=== PATIENT | female | born 1960 | race Hispanic/Latino ===

== ENCOUNTER 2022-11-19 15:10 | Emergency (ER) | payer OTHER, SELFPAY ==
--- NOTE | 2022-11-19 15:15 | ED.FEMALEGU ---
HPI - Female Genitourinary General Chief complaint: Abdominal Pain Stated complaint: Abdominal Pain/Nausea/ Vomiting/UTI Time Seen by Provider: 11/19/22 15:40 Source: patient and RN notes reviewed Mode of arrival: ambulatory Limitations: no limitations History of Present Illness HPI Narrative: 62-year-old female presents concern for urinary tract infection symptoms. She reports dysuria, frequency, urgency, left low back pain, nausea without vomiting. 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 She reports the symptoms feel like her typical urinary tract infection symptoms. MD elicited complaint: UTI Related Data Home Medications Medication Instructions Recorded Confirmed hydrochlorothiazide 25 mg tablet 25 mg PO DAILY 11/19/22 11/19/22 levothyroxine 137 mcg tablet 137 mcg PO DAILY 11/19/22 11/19/22 lisinopril 20 mg tablet 20 mg PO DAILY 11/19/22 11/19/22 omeprazole 40 mg capsule,delayed 40 mg PO DAILY 11/19/22 11/19/22 release Allergies Allergy/AdvReac Type Severity Reaction Status Date / Time hydromorphone Allergy Intermediate HALLUCINATIONS/INCREASE Verified 11/19/22 15:20 AGGITATION Review of Systems Review of Systems: CONSTITUTIONAL: Denies malaise, chills, sweats, or fever. CARDIOVASCULAR: Denies chest pain, palpitations, or edema. RESPIRATORY: Denies cough or dyspnea. GASTROINTESTINAL: Reports abdominal pain, nausea, diarrhea. Denies vomiting GENITOURINARY: Reports dysuria, frequency, urgency, suprapubic pressure. Reports left flank pain SKIN: Denies rash or itching. MUSCULOSKELETAL: Reports left back pain. Denies myalgia. All systems reviewed & are unremarkable except as noted in HPI and below PMFSH Comments At time of signature, agree with nursing past medical, surgical, social and family history. There is no relevant family history pertinent to the presenting complaint Exam Narrative: GENERAL: Well-appearing, well-nourished, and in no acute distress. HEAD: Normocephalic. EYES: PERRLA, conjunctivae clear. NECK: Supple. No lymphadenopathy CHEST: Clear to auscultation. No respiratory distress. HEART: Regular rate and rhythm. ABDOMEN: Soft, nontender upon palpation, nondistended, normal active bowel sounds, no palpable or pulsatile masses, no guarding. No CVA tenderness SKIN: Warm, dry, no rash. NEURO: Alert and oriented x3. PSYCH: Normal mood and affect Course Course Emergency Course: Discussed with patient and her daughter limited diagnostic capability at [facility] for abdominal pain. They voiced understanding and feel like this is her typical urinary tract infection symptoms, discussed treating for potential infection while awaiting culture results versus transfer to emergency department. Patient is nontoxic appearing, no significant abdominal tenderness, no vomiting, no fever. Will treat pending culture, patient understands reasons to go to the emergency room. Patient is aware of, understands and agrees to treatment plan. Anticipatory guidance given. Patient agrees to follow-up as directed and is aware of reasons to seek care at the emergency department. Portions of this record may have been created with voice recognition software Level of Care: [facility] Vital Signs Vital signs: Reviewed. MDM - Female Genitourinary MDM Narrative Medical decision making narrative: Exam findings and UA show no acute concerns or changes; patient is non-toxic appearing and is in no distress. Patient is appropriate for outpatient treatment and follow-up. Differential Diagnosis Differential diagnosis: Likely urinary tract infection and cystitis Critical Care Time Critical Care Time Critical Care Time: No Discharge Plan Discharge Clinical Impression: Symptoms of urinary tract infection Patient Disposition: Home, Self-Care Condition: St
[2022-11-19 15:26] VITALS: BP 147/68; PULSE 89; RESP 16; TEMP 37.2; O2SAT 98
== END 2022-11-19 15:46 | disposition home or self-care (01) ==
PROVIDERS: Emergency Provider Nurse Practitioner; PCP Family Medicine
DX: R30.0 Dysuria (principal); R35.0 Frequency of micturition; R39.15 Urgency of urination; M54.50 Low back pain, unspecified; R11.0 Nausea; R10.30 Lower abdominal pain, unspecified; I10 Essential (primary) hypertension; K21.9 Gastro-esophageal reflux disease without esophagitis; Z90.89 Acquired absence of other organs
CPT/HCPCS: 81003; 87086; 87088; 99213; G0463

== ENCOUNTER 2023-10-26 09:32 | Emergency (ER) | payer MEDICAID, SELFPAY ==
[2023-10-26] VITALS (43 sets, daily range): BP systolic 133–162; BP diastolic 62–91; PULSE 72–122; RESP 13–32; TEMP 36.3; O2SAT 92–100
--- NOTE | ~2023-10-26 | CT_ITS ---
EXAMINATION: CT abdomen pelvis wo con DATE: 10/26/2023 17:14 INDICATION: Abdominal distention TECHNIQUE: Computed tomography (CT) of the abdomen and pelvis was performed without intravenous contr ast. Automated exposure control and iterative reconstruction technique were employed. The dose-length product was 1563.84 mGy-cm. COMPARISON: None FINDINGS: There is prominent elevation right hemidiaphragm resulting from mass effect from a right upper quadra nt mass which measures 25.3 cm craniocaudally and 20.6 x 15.1 cm maximal transaxial dimensions. There is adjacent compressive atelectasis in the right middle and lower lobes. There are multiple vessels and small nodular and more groundglass soft tissue densities scattered throughout the predominantly m acroscopic fat attenuation mass. There are few scattered punctate calcifications within the mass as w ell as an approximately 4.8 cm E region within the mass with some peripheral curvilinear calcificatio n. The mass exerts mass effect upon the posterior margin of the right hepatic lobe. The mass appears to arise from within the right hepatic lobe. There appears be a suture line along with a few surgical clips along the periphery of the mass. There are also postoperative change of a prior extensive vent ral hernia mesh repair. Cholecystectomy clips the gallbladder fossa. Spleen, pancreas, bilateral adre nal glands and kidneys are normal. There is moderate colonic diverticulosis with a sigmoid descending colon predominance. There is no adjacent inflammatory change to suggest diverticulitis. Small bowel and appendix are normal. There are some excreted contrast in the normal bladder resulting from the ea rlier contrast-enhanced chest CT. The uterus and bilateral adnexa are unremarkable. No free intraperi toneal gas or fluid. No pathologically enlarged abdominal or pelvic lymphadenopathy. No other abnorma l masses in the abdomen or pelvis. Mild S-shaped curvature and small to moderate spondylosis of the l umbar and lower thoracic spine. IMPRESSION: 1. 25.3 x 20.6 x 15.1 cm macroscopic fat, soft tissue density and calcification containing mass which appears to arise from within the right hepatic lobe. Differential would include hepatic teratoma, at ypical lipoma and metastatic liposarcoma. Per review of an earlier TR note from one year prior the rylee mahajan has a known history of a large benign abdominal mass that is inoperable. Recommend correlatio n with more detailed outside clinical history. 2. No acute intra-abdominal/pelvic process. 3. Diverticulosis. Reviewed, dictated and finalized at location A. S EXECUTIVE IMPRESSION: 1. 25.3 x 20.6 x 15.1 cm macroscopic fat, soft tissue density and calcification containing mass which appears to arise from within the right hepatic lobe. Dif ferential would include hepatic teratoma, atypical lipoma and metastatic liposa rcoma. Per review of an earlier TR note from one year prior the patient has a k nown history of a large benign abdominal mass that is inoperable. Recommend c orrelation with more detailed outside clinical history. 2. No acute intra-abdominal/pelvic process. 3. Diverticulosis.
--- NOTE | ~2023-10-26 | CT_ITS ---
EXAMINATION: CTA chest PE protocol DATE: 10/26/2023 17:14 INDICATION: Cough and congestion TECHNIQUE: Computed tomography (CT) pulmonary angiogram of the chest was performed with 100 mL Omnipa que-350 intravenous contrast. Additional 3D reconstructions utilizing coronal maximum intensity proje ction (MIP) were performed. Automated exposure control and iterative reconstruction technique were em ployed. The dose-length product was 882.12 mGy-cm. COMPARISON: None FINDINGS: Good contrast opacification of the pulmonary arteries. There is mild streak artifact from dense contr ast in the superior vena cava and right atrium. Scattered respiratory motion most prominent in the le ft lower lung zone where it decreases sensitivity in the segmental and subsegmental pulmonary arterie s. No pulmonary embolism identified. There is prominent elevation of the right hemidiaphragm which ap pears to result from a very large macroscopic fat attenuation mass which will be further detailed on separate CT of the abdomen and pelvis. Secondary compressive atelectasis with complete collapse of th e right middle lobe and collapse of the basilar segments of the right lower lobe. No pneumonia, pulmo nary edema or pleural effusion. Heart size is normal. No pericardial effusion. Thoracic aorta is norm al in caliber with no dissection. 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 No pathologically enlarged thoracic lymphadenopathy. Mild thoracic spondylosis. IMPRESSION: 1. No pulmonary embolism or other acute cardiopulmonary disease. Sensitivity is somewhat decreased du e to respiratory motion in the left lower lung. 2. Collapse of the right middle lobe and basilar segments of the right lower lobe resulting from a la rge macroscopic fat-containing right abdominal mass which significantly elevated right hemidiaphragm. See separate CT abdomen pelvis report for further detail. Reviewed, dictated and finalized at location A. DESIGN DETAILER IMPRESSION: 1. No pulmonary embolism or other acute cardiopulmonary disease. Sensitivity is somewhat decreased due to respiratory motion in the left lower lung. 2. Collapse of the right middle lobe and basilar segments of the right lower lo be resulting from a large macroscopic fat-containing right abdominal mass which significantly elevated right hemidiaphragm. See separate CT abdomen pelvis rep ort for further detail.
--- NOTE | ~2023-10-26 | XR_ITS ---
EXAMINATION: XR chest 2V DATE: 10/26/2023 10:14 INDICATION: 3 weeks of productive cough TECHNIQUE: frontal view of the chest was obtained. COMPARISON: None FINDINGS: Small right lung volume with marked elevation of the right hemidiaphragm. Mild linear atelectasis at the left lower lung zone. No other airspace opacities, pulmonary edema, pleural effusion or pneumotho rax. Heart size is normal. Postoperative change of prior ventral hernia mesh repair in the upper abdo men. IMPRESSION: 1. 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 2. Mild linear atelectasis at the left lower lung zone. Reviewed, dictated and finalized at location A. AMON GRINDER
--- NOTE | 2023-10-26 13:51 | ED.URI ---
HPI - URI/Sore Throat General Chief Complaint: Upper Respiratory Infection Stated Complaint: cough Time Seen by Provider: 10/26/23 13:44 History of Present Illness HPI Narrative: Patient is a 63-year-old female with no significant medical history here with cough and shortness of breath. She states that her symptoms 1st began about 3 weeks ago and were mild at that time. Symptoms have persistently worsened over the last couple of weeks and now the cough is so persistent that she is unable to sleep at night. She notes that she has a cough which is productive in nature. She is having some chest pains which occur when she has excessive coughing. She notes that her shortness of breath seems to worsen and is now present at rest, this is associated with some significant wheeze as well. No prior smoking history, no diagnosis of COPD or asthma. No prior cardiac history. She does note that she had a recent outpatient cardiac workup which was negative. She denies any lower extremity swelling. She does note that she had a daughter that was sick with similar however she went saw doctor, got started on medications for her cough and seems to have improved a return to work. She has had some associated chills. She attempted Nyquil and Dayquil at home with no help with symptoms. Hemp Fiber Taker Off # [id number] used for history. Related Data Home Medications Medication Instructions Recorded Confirmed hydrochlorothiazide 25 mg tablet 25 mg PO DAILY 11/19/22 11/19/22 levothyroxine 137 mcg tablet 137 mcg PO DAILY 11/19/22 11/19/22 lisinopril 20 mg tablet 20 mg PO DAILY 11/19/22 11/19/22 omeprazole 40 mg capsule,delayed 40 mg PO DAILY 11/19/22 11/19/22 release Allergies Allergy/AdvReac Type Severity Reaction Status Date / Time hydromorphone Allergy Intermediate HALLUCINATIONS/INCREASE Verified 11/19/22 15:20 AGGITATION Review of Systems Review of Systems: All systems reviewed & are unremarkable except as noted in HPI and below Exam Narrative: GENERAL: Well-appearing, well-nourished, and mild respiratory distress HEAD: Normocephalic, atraumatic. EYES: PERRLA and EOMI. ENT: Nares clear. Mucous membranes moist. NECK: Supple. CHEST: mild respiratory distress, tachypneic, diffuse wheeze bilaterally. HEART: Regular rate and rhythm. Normal peripheral pulses. ABDOMEN: Soft, nontender, nondistended. EXTREMITIES: Normal range of motion. No lower extremity edema. SKIN: Warm, dry, no rash. NEURO: No focal deficits. Alert and oriented x3. PSYCH: Normal mood and affect. Course Course Emergency Course: Chart review performed. Patient here with productive cough, congestion x3 weeks. Triage vitals show tachycardia, otherwise grossly normal. Patient seen evaluated, nontoxic appearing, she does appear tachypneic and diffusely wheezing on exam. COVID, influenza, RSV swab has been ordered. Chest x-ray performed in triage negative. She is tachycardic and tachypneic, screening D-dimer has been sent, cardiac workup ordered, will do nebulizer given significant wheeze. Patient positive for RSV. Suspect she is likely no longer contagious given symptoms for 3 weeks. Lab work and imaging reviewed. WBC 11.2, CMP grossly normal. BNP grossly normal. D-dimer elevated. Will do CTA PE study. Received phone call from Radiology, they note that he has some abnormalities on his liver that they can see with his CTA of his chest, will add on CT abdomen pelvis. No PE, no obvious infiltrate on CT. Large liver mass noted on CT, chart notes history of large benign abdominal mass, suspect that is what this finding is. Can non emergently be followed with her PCP. Patient ambulated without difficulty, no desaturations. Patient re-evaluated. Looking significantly better. No longer wheezing on my exam. Will start her on a course of steroids and provide an albuterol inhaler to use as needed for her wheezing. She knows of the liver mass already. Advised close
[2023-10-26 14:10] LABS: Influenza A QL RT-PCR Negative (Negative); Influenza B QL RT-PCR Negative (Negative); RSV RNA, RT-PCR Positive (Negative); SARS-CoV-2 RNA PCR Negative (Negative)
[2023-10-26 14:24] LABS: Basophils Absolute Auto 0.1 K/mm3 (0.0-0.1); Basophils Percent Auto 0.4 % (0.2-1.2); Eosinophils Percent Auto 0.1 % (0-4.4); Hematocrit 37.2 % (37.0-47.0); Hemoglobin 11.7 g/dL (12.0-15.0); Immature Granulocyte Absolute 0.05 K/mm3 (0.00-0.031); Immature Granulocyte Percent A 0.4 % (0-0.5); Lymphocytes Absolute Auto 0.43 K/mm3 (0.9-3.2); Lymphocytes Percent Auto 3.8 % (18.3-44.2); Mean Corpuscular HGB Conc 31.5 g/dl (32-36); Mean Corpuscular Hemoglobin 29.3 pg (26-34); Monocytes Absolute Auto 0.5 K/mm3 (0.1-0.6); Monocytes Percent Auto 4.1 % (2.6-8.5); Neutrophils Absolute Auto 10.2 K/mm3 (1.3-6.7); Neutrophils Percent Auto 91.2 % (45.5-73.1); Platelet Count Result 224 k/mm3 (150-375); Red Cell Distribution Width 14.4 % (11.5-14.5); White Blood Count 11.2 K/mm3 (4.5-10.0)
[2023-10-26] MEDS: ALBUTEROL SULFATE NEB 2.5 MG/3 ML INH 15 MG INHALATION (14:27)
[2023-10-26] MEDS: IPRATROPIUM BR 0.02% INH SOLN 0.5 MG/2.5 ML VIAL 1.5 MG INHALATION (14:28)
[2023-10-26 14:33] LABS: Alanine Aminotransferase 24 U/L (6-35); Albumin Level 4.1 g/dL (3.5-5.1); Alkaline Phosphatase 83 U/L (38-126); Anion Gap 6 mmol/L (8-16); Aspartate Amino Transferase 39 U/L (14-36); Bilirubin,Total 0.6 mg/dL (0.2-1.3); Blood Urea Nitrogen 15 mg/dL (7-17); Calcium 8.5 mg/dL (8.4-10.2); Carbon Dioxide 32 mmol/L (22-30); Chloride 94 mmol/L (98-107); Estimated CRCL calculation 81 ml/min; Estimated Glomerular Filt Rate > 60; Glucose 124 mg/dL (65-110); Potassium 3.6 mmol/L (3.4-5.0); Sodium 132 mmol/L (137-145)
[2023-10-26] MEDS: methylPREDNISolone SOD SUCC 125 MG VIAL IV PUSH (14:41)
[2023-10-26 14:45] LABS: NT Pro B Type Natriuretic Pept 166 pg/mL (19.9-100); Troponin I < 0.012 ng/mL (0.000-0.034)
[2023-10-26 16:31] LABS: D Dimer 3.33 ug/mL (<0.48)
[2023-10-26 17:16] LABS: Troponin I < 0.012 ng/mL (0.000-0.034)
== END 2023-10-26 20:22 | disposition home or self-care (01) ==
PROVIDERS: Emergency Provider Student in an Organized Health Care Education/Training Program; PCP Family Medicine
DX: R06.2 Wheezing (principal); B97.4 Respiratory syncytial virus as the cause of diseases classified elsewhere; Z20.822 Contact with and (suspected) exposure to COVID-19
CPT/HCPCS: 36415; 71046; 71275; 74176; 80053; 83880; 84484; 85025; 85380; 87637; 96374; 99284; J2930; Q9967